=== PATIENT | female | born 1945 | race Caucasian/White ===

== ENCOUNTER 2019-09-28 16:27 | Day surgery (SDC) | payer MEDICARE, BC ==
[~2019-09-28] VITALS: Ht 170.2 cm; Wt 63.5 kg
[~2019-09-28 16:27] MED LIST: IOHEXOL-350 100 ML VIAL IV ONE; NITROGLYCERIN 0.4 MG/TAB BOTTLE ONE
[2019-09-28] MEDS ORDERED: IV NS 0.9% 250 ML IV ONE (16:28)
[2019-09-28] MEDS ORDERED: CT SWABBABLE VALVE TRANS SET 1 EA INFUS.SET MC ONE (16:28)
[2019-09-28] MEDS ORDERED: METOPROLOL TARTRATE INJ 5 MG/5 ML AMPUL ONE (16:28)
[2019-09-28 16:54] VITALS: BP 137/75
[2019-09-28] MEDS ORDERED: NITROGLYCERIN 0.4 MG/TAB BOTTLE SL ONE (17:00)
[2019-09-28] MEDS ORDERED: METOPROLOL TARTRATE INJ 5 MG/5 ML AMPUL IVP PRN (17:00)
--- NOTE | 2019-09-28 17:11 | NUR ---
Reported given to emt, SAPPHIRE for karen going back to [facility]. Patient left in stable condition at this time. VSS with no acute distress noted. Denies any chest pain or SOB.
== END 2019-09-28 17:15 | disposition short-term general hospital (02) ==
LOC: CT 16:27
PROVIDERS: ATTEND Internal Medicine Interventional Cardiology
DX: I25.10 Atherosclerotic heart disease of native coronary artery without angina pectoris (principal); I31.3 Pericardial effusion (noninflammatory); I70.0 Atherosclerosis of aorta; G45.9 Transient cerebral ischemic attack, unspecified; M47.814 Spondylosis without myelopathy or radiculopathy, thoracic region; M41.84 Other forms of scoliosis, thoracic region
CPT/HCPCS: 75574; 96374; J3490; J7050; Q9967